=== PATIENT | female | born 1990 | race Caucasian/White ===

== ENCOUNTER 2016-07-03 13:51 | Emergency (ER) | payer SELFPAY ==
--- NOTE | 2016-07-03 14:30 | ER Document Report ---
ED Medical Screen (RME) - General Stated Complaint: RECTAL PAIN Notes: Pain to rectum for 10 days after moving furniture I greeted and performed a rapid initial assessment of this patient. Comprehensive ED assessment and evaluation of the patient, analysis of test results and completion of the medical decision making process will be conducted by additional ED providers. TRAVEL OUTSIDE OF THE [place] IN LAST 30 DAYS: No - Related Data Allergies/Adverse Reactions: sulfamethoxazole [From Septra] Allergy (Severe, Verified 02/26/15 12:28) Unsure trimethoprim [From Septra] Allergy (Severe, Verified 02/26/15 12:28) Unsure Past Medical History GI Medical History: Musculoskeltal Medical History: Denies Hx Fibromyalgia Psychiatric Medical History: Reports: Hx Depression - Dx of Depression at age 7 Denies: Hx Bipolar Disorder, Hx Post Traumatic Stress Disorder, Hx Schizophrenia Traumatic Medical History: Reports: Hx Fractures - Fx rib from coughing with Bronchitis in 06/2012 Past Surgical History: Reports: Hx Appendectomy, Hx Section, Hx Tubal Ligation - Immunizations Hx Diphtheria, Pertussis, Tetanus Vaccination: Yes
[2016-07-03] MEDS ORDERED: LIDOCAINE 1% INJ-PF (10 MG/ML) 30 ML SDV INJ ONE (15:39)
[2016-07-03] MEDS ORDERED: OXYCODONE-ACETAMINOPHEN 5-325 MG TABLET PO ONE (15:39)
--- NOTE | 2016-07-03 15:43 | ER Document Report ---
ED Skin Rash/Insect Bite/Abscs - General Chief Complaint: Abscess Stated Complaint: RECTAL PAIN Notes: Patient is a 26-year-old female presents emergency Department complaining of rectal pain for about 10 days. Patient states that she has a history of one external hemorrhoid but this pain is different she describes it as a constant throbbing that gets worse with pressure and touch. Denies any fevers or chills in the past couple of days. Denies any bright red blood per rectum. Denies any previous MRSA infection. Does not have a primary care provider Past medical history denies Past surgical history significant for appendectomy and tubal ligation in social history 16 pack years, rare alcohol use is social marijuana use. Allergies to Bactrim TRAVEL OUTSIDE OF THE [place] IN LAST 30 DAYS: No - Related Data Allergies/Adverse Reactions: sulfamethoxazole [From Febra] Allergy (Severe, Verified 07/03/16 14:31) Unsure trimethoprim [From Febra] Allergy (Severe, Verified 07/03/16 14:31) Unsure Past Medical History - General Information source: Patient - Social History Smoking Status: Current Every Day Smoker Chew tobacco use (# tins/day): No Frequency of alcohol use: None Drug Abuse: None Family History: Reviewed & Not Pertinent, Hyperlipidemia, Malignancy Patient has suicidal ideation: No Patient has homicidal ideation: No Renal/ Medical History: Denies: Hx Peritoneal Dialysis GI Medical History: Musculoskeltal Medical History: Denies Hx Fibromyalgia Psychiatric Medical History: Reports: Hx Depression - Dx of Depression at age 7 Denies: Hx Bipolar Disorder, Hx Post Traumatic Stress Disorder, Hx Schizophrenia Traumatic Medical History: Reports: Hx Fractures - Fx rib from coughing with Bronchitis in 06/2012 Past Surgical History: Reports: Hx Appendectomy, Hx Section, Hx Tubal Ligation - Immunizations Hx Diphtheria, Pertussis, Tetanus Vaccination: Yes Review of Systems - Review of Systems Constitutional: No symptoms reported EENT: No symptoms reported Cardiovascular: No symptoms reported Respiratory: No symptoms reported Gastrointestinal: No symptoms reported Genitourinary: No symptoms reported Female Genitourinary: No symptoms reported Musculoskeletal: No symptoms reported Skin: See HPI Hematologic/Lymphatic: No symptoms reported Neurological/Psychological: No symptoms reported Physical Exam - Vital signs Vitals: Temp Pulse Resp BP Pulse Ox 98.2 F 95 20 136/73 H 98 07/03/16 14:32 07/03/16 14:32 07/03/16 14:32 07/03/16 14:32 07/03/16 14:32 - Skin Skin Temperature: Warm Skin Moisture: Dry Skin irregularity: Abscess Location of irregularity: Other - Anus Character of irregularity: Erythematous Irregularity with: Swelling, Tenderness, Warmth, Induration, Inflammation Course - Re-evaluation Re-evalutation: 07/03/16 16:44 Patient is a 18-year-old female is hemodynamically stable, no acute distress and afebrile. Abscess was drained the bedside of present material tolerated well. Will discharge patient home on by mouth antibiotics and can follow-up with her primary care provider as needed. - Vital Signs Vital signs: Temp Pulse Resp BP Pulse Ox 98.2 F 95 20 136/73 H 98 07/03/16 14:32 07/03/16 14:32 07/03/16 14:32 07/03/16 14:32 07/03/16 14:32 Procedures - Incision and Drainage Rectal Time completed: 16:30 Type: Simple Anesthetic type: 1% Lidocaine mL's of anesthetic: 2 Blade size: 11 I&D procedure: Betadine prep applied Incision Method: Incision made with needle Amount/type of drainage: 5cc purulent drainage Adult Front & Back picture: Female anatomy: 1 - abscess Discharge - Discharge Clinical Impression: Abscess Condition: Good Disposition: HOME, SELF-CARE Instructions: Use of [id number] Ibuprofen ([facility]) Additional Instructions: ABSCESS: You have an abscess (boil). This a pus-forming infection, usually due to staph. Some boils may be left to drain on their own, but most require lancing. From the time the tender lump first appears, it may be three or four days before the abscess is ready to shellie. Local heat and rest help at this stage of treatment. An antibiotic may prevent spread of the infection. Once the abscess is opened, packing may be placed into it. This is done so pus is not sealed inside by premature closure of the cavity. The packing will be removed at your follow-up visit or you may be advised to remove it yourself at home. Sometimes this packing must be replaced a few times during healing. The wound will heal with surprisingly little scar. Depending on the size and location of an abscess, healing can take one to four weeks. You may shower and wash the area around the incision site two or three times a day. Antibiotics may be prescribed, but are usually not necessary after an abscess has been drained. If you develop fever, chills, worsening pain, or increasing swelling in the area, call the doctor or return immediately. POST INCISION AND DRAINAGE: You have had an incision made to allow drainage of an abscess. The incision must remain open so that pus and debris can drain from the wound. If the abscess cavity is large, packing is placed. This keeps the tissues from collapsing and trapping pus inside, while the body shrinks the cavity. The packing may need to be replaced every day or two. The physician will instruct you on the packing. Keep a bulky dressing over the area. Replace it if it becomes saturated with blood or pus. Do not disturb the packing (if present). You may shower and cleanse the area with gentle soap and warm water two or three times a day. Local warmth may be soothing, and may promote faster healing. Return if you develop high fever or chills, or if you note spreading redness, increasing swelling, or increasing tenderness. MRSA CELLULITIS: You have an infection of your skin and underlying soft tissues called cellulitis. This is due to bacteria, which can enter through any break in the skin, or even through an irritated hair follicle. Untreated, cellulitis will usually worsen and may form an abscess which requires draining. Although many bacterial organisms can cause cellulitis and abscess formations, the most likely bacteria is Methicillin-Resistant Staph Aureus, or MRSA for short. Antibiotics are required. Usually, warm packs or warm soaks, and elevation of the infected area are recommended. You should start getting better within 24 to 36 hours. Most infections respond quickly to the right medication. Follow-up care is important, however, to check for abscess (boil) formation, unsuspected foreign body, or resistant infection. If you develop fever, chills, or if the area of infection is becoming rapidly more swollen or painful, call the doctor at once. FOLLOW-UP CARE: Most simple abscesses will not require a follow up visit. If you had packing placed in the abscess, remove it as instructed by the physician. If you have been referred to a physician for follow-up care, call the physicians office for an appointment as you were instructed or within the next two days. If you experience worsening or a significant change in your symptoms, return to the Emergency Department at any time for re-evaluation. Prescriptions: Clindamycin HCl 300 mg PO Q8H 7 Days Forms: Return to Work Referrals: ARIESNO [Primary Care Provider] - [facility] as needed [facility]NO [facility] - Follow up as needed
[2016-07-03] MEDS ORDERED: CLINDAMYCIN HCL 150 MG CAPSULE PO ONE (16:51)
[2016-07-03 17:38] VITALS: BP 110/66
== END 2016-07-03 17:38 | disposition home or self-care (01) ==
LOC: ER 13:51
PROC: 0D9P0ZZ Drainage of Rectum, Open Approach (ICD-10-PCS; principal; 2016-07-03)
DX: K61.1 Rectal abscess (principal); K62.89 Other specified diseases of anus and rectum; F17.200 Nicotine dependence, unspecified, uncomplicated; Z98.51 Tubal ligation status; Z88.3 Allergy status to other anti-infective agents
CPT/HCPCS: 99283; 87070; 87205; 87075; 87077; 46040; J3490; 87186

== ENCOUNTER 2018-05-03 13:00 | Emergency (ER) | payer SELFPAY ==
[2018-05-03 13:10] VITALS: BP 127/83
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
== END 2018-05-03 15:40 | disposition home or self-care (01) ==
LOC: ER 13:00
DX: T76.21XA Adult sexual abuse, suspected, initial encounter (principal); R10.30 Lower abdominal pain, unspecified; R10.2 Pelvic and perineal pain; F17.200 Nicotine dependence, unspecified, uncomplicated; F12.10 Cannabis abuse, uncomplicated
CPT/HCPCS: 99284